=== PATIENT | female | born 1975 | race Caucasian/White ===

== ENCOUNTER 2023-02-28 09:58 | Emergency (ER) | payer BC, SELFPAY ==
[2023-02-28 10:00] VITALS: BP 134/65; PULSE 60; RESP 18; TEMP 36.9; O2SAT 100; BMI 19.6
[2023-02-28 10:08] VITALS: BP 134/65; O2SAT 97
--- NOTE | 2023-02-28 10:28 | ED.FEMALEGU ---
HPI - Female Genitourinary General Chief complaint: Urogenital-Female Stated complaint: vaginal discharge, fever, D/V/N Time Seen by Provider: 02/28/23 10:17 Source: patient Mode of arrival: Ambulatory History of Present Illness HPI Narrative: Patient 47-year-old healthy female who has history of hypothyroid presents today with foul smell vaginal discharge. She reports that she woke up this morning felt nauseous threw up and had couple episodes [place] diarrhea. [place] up on the [place] they checked her temperature and it was 103. She is afebrile here. She reports that she took out her menstrual cup this morning and had gross foul-smelling discharge. She reports that she is been using the cups for the last 10 years she is never had anything like this. Related Data Home Medications Medication Instructions Recorded Confirmed levothyroxine 112 mcg tablet 56 mcg PO DAILY 02/28/23 02/28/23 Previous Rx's Medication Instructions Recorded ondansetron 4 mg disintegrating 4 mg PO Q8H PRN nausea and 02/28/23 tablet vomiting #10 tabs Allergies Allergy/AdvReac Type Severity Reaction Status Date / Time cefazolin [From Ancef] Allergy Intermediate Hives Verified 02/28/23 10:12 ciprofloxacin [From Cipro] Allergy Intermediate Hives Verified 02/28/23 10:12 clarithromycin [From Biaxin] Allergy Intermediate Hives Verified 02/28/23 10:12 erythromycin base Allergy Intermediate Hives Verified 02/28/23 10:12 sertraline [From Zoloft] Allergy Intermediate Hives Verified 02/28/23 10:12 codeine AdvReac Intermediate ITCHING Verified 02/28/23 10:12 Review of Systems Review of Systems ROS Unobtainable: All systems reviewed & are unremarkable except as noted in HPI and below Patient History Medical History Hypothyroid alcohol intake frequency: 0-2 drinks per day Substance Use Type: does not use Exam Initial Vital Signs Initial Vital Signs: Vital Signs Temperature 98.5 F 02/28/23 10:00 Pulse Rate 60 02/28/23 10:00 Respiratory Rate 18 02/28/23 10:00 Blood Pressure 134/65 02/28/23 10:00 Pulse Oximetry 100 02/28/23 10:00 Oxygen Delivery Method Room Air 02/28/23 10:00 GENERAL: Alert pleasant thin 47-year-old female and in no acute distress. HEENT: Head atraumatic,EOMI, pupils reactive, face symmetric, moist mucous membranes CARDIOVASCULAR: Regular rate and rhythm without murmurs, rubs or gallops. RESPIRATORY: Breath sounds equal bilaterally, no wheezes rales or rhonchi. ABDOMEN: Soft, nontender. Normoactive bowel sounds all 4 quadrants. No guarding or rebound. PELVIC: External genitalia is normal, cervix mildly friable clear discharge there is some blood no foul smell or gross discharge : No CVA tenderness EXTREMITIES: Normal range of motion, no clubbing or edema. Neurovascularly intact NEUROLOGICAL: Alert and oriented x4. SKIN: Warm, dry, no laceration, no petechiae, no rashes or lesions. Course Orders Ordered: ED Orders 02/28/23 10:13 Complete Blood Count AUTO DIFF Stat Comprehensive Metabolic Panel Stat Lipase Stat 02/28/23 10:38 Genital Culture Stat Urine Microscopic Stat Wet Prep Tric BV [place] Stat 02/28/23 10:45 Chlamydia Gonorrhea PCR -URINE Stat Discontinued Medications Sodium Chloride (Normal Saline 0.9%) 1,000 mls @ 1,000 mls/hr IV BOLUS ONE Stop: 02/28/23 11:16 Last Infusion: 02/28/23 12:04 Dose: 0 mls/hr Documented By: Admin: 02/28/23 10:57 Dose: 1,000 mls/hr Documented By: NR Sodium Chloride (Normal Saline 0.9%) 1,000 mls @ 1,000 mls/hr IV BOLUS ONE Stop: 02/28/23 11:27 Last Admin: 02/28/23 10:38 Dose: Not Given Documented By: ZURI Ondansetron HCl (Ondansetron 4 Mg Odt) 4 mg PO NOW PRN PRN Reason: Nausea And Vomiting Ondansetron HCl (Ondansetron 4 Mg/2 Ml Inj) 4 mg IV NOW PRN PRN Reason: Nausea And Vomiting Last Admin: 02/28/23 11:01 Dose: 4 mg Documented By: NR Vital Signs Vital signs: Vital Signs - 8 hr 02/28/23 11:53 02/28/23 11:53 Pulse Rate 61 Respiratory Rate 14 Blood Pressure 100/59 L Pulse Oximetry 100 Oxygen Delivery Method Room Air MDM - Female Genitourinary Lab Data Lab results narrative: Wet Prep Tric [facility] [place] Final 02/28/23-1101 White blood cells Few WBCs Clue cells: None seen Yeast: None seen Trichomonas: None seen 02/28/23 10:13 02/28/23 10:13 Labs: Lab Results 02/28/23 02/28/23 02/28/23 Range/Units 10:13 10:13 10:38 WBC 6.7 (4.5-11.0) X10^3/uL RBC 4.33 (4.0-5.2) X10^6/uL Hgb 11.9 L (12.0-16.0) g/dL Hct 36.1 (36-46) % MCV 83.4 (80-100) fL MCH 27.5 (26-34) PG MCHC 32.9 (30-36) % RDW 14.6 (11.6-14.8) % Plt Count 254 (150-400) X10^3/uL Neut % (Auto) 83.0 H (50-75) % Lymph % (Auto) 11.5 L (25-40) % [place] % (Auto) 4.1 (3-14) % Eos % (Auto) 0.8 L (2-4) % Baso % (Auto) 0.6 (0-2) % Neut # (Auto) 5600 (2701-2679) /uL Lymph # (Auto) 800 L (0308-9976) /uL [place] # (Auto) 300 (0-900) /uL Eos # (Auto) 100 (0-450) /uL Baso # (Auto) 0 (0-100) /uL Sodium 137 (137-145) mmol/L Potassium 3.6 (3.4-5.1) mmol/L Chloride 107 (98-107) mmol/L Carbon Dioxide 21 L (22-32) mmol/L BUN 13 (7-17) mg/dL Creatinine 0.79 (0.52-1.04) mg/dL Estimated GFR > 60 (>60) mL/min BUN/Creatinine Ratio 16.5 (6-22) Glucose 97 (70-100) mg/dL Calcium 9.1 (8.4-10.2) mg/dL Total Bilirubin 0.5 (0.2-1.3) mg/dL AST 36 (14-36) IU/L ALT 43 H (<35) IU/L Alkaline Phosphatase 55 (38-126) U/L Total Protein 7.7 (6.3-8.2) g/dL Albumin 4.5 (3.5-5.0) g/dL Globulin 3.2 (1.7-4.1) g/dL Albumin/Globulin Ratio 1.4 (1.0-2.8) Lipase 175 (23-300) U/L Urine RBC 0-1/hpf (0-5/HPF) Urine WBC 0-1/hpf (0-5/HPF) Ur Squamous Epith Cells 0-1 /hpf (0-5/HPF) Urine Bacteria Occasional (0-1) (None) Ur Culture Indicated? Cult not indicated Ur Chlamydia DNA (PCR) N gonorrhoeae DNA (PCR) 02/28/23 Range/Units 10:45 WBC (4.5-11.0) X10^3/uL RBC (4.0-5.2) X10^6/uL Hgb (12.0-16.0) g/dL Hct (36-46) % MCV (80-100) fL MCH (26-34) PG MCHC (30-36) % RDW (11.6-14.8) % Plt Count (150-400) X10^3/uL Neut % (Auto) (50-75) % Lymph % (Auto) (25-40) % [place] % (Auto) (3-14) % Eos % (Auto) (2-4) % Baso % (Auto) (0-2) % Neut # (Auto) (7409-2810) /uL Lymph # (Auto) (9073-2417) /uL [place] # (Auto) (0-900) /uL Eos # (Auto) (0-450) /uL Baso # (Auto) (0-100) /uL Sodium (137-145) mmol/L Potassium (3.4-5.1) mmol/L Chloride (98-107) mmol/L Carbon Dioxide (22-32) mmol/L BUN (7-17) mg/dL Creatinine (0.52-1.04) mg/dL Estimated GFR (>60) mL/min BUN/Creatinine Ratio (6-22) Glucose (70-100) mg/dL Calcium (8.4-10.2) mg/dL Total Bilirubin (0.2-1.3) mg/dL AST (14-36) IU/L ALT (<35) IU/L Alkaline Phosphatase (38-126) U/L Total Protein (6.3-8.2) g/dL Albumin (3.5-5.0) g/dL Globulin (1.7-4.1) g/dL Albumin/Globulin Ratio (1.0-2.8) Lipase (23-300) U/L Urine RBC (0-5/HPF) Urine WBC (0-5/HPF) Ur Squamous Epith Cells (0-5/HPF) Urine Bacteria (None) Ur Culture Indicated? Ur Chlamydia DNA (PCR) Not detected N gonorrhoeae DNA (PCR) Not detected Point of Care Testing Test Results Negative Urine Dip Bedside Urine Glucose Negative Bedside Urine Bilirubin - Negative Bedside Urine Ketone - Negative Urine Specific [place] 1.010 Bedside Urine Occult Blood ++ Bedside Urine pH 8 Bedside Urine Protein - Negative Bedside Urine Urobilinogen - Negative Bedside Urine Nitrite - Negative Bedside Urine Leukocytes - Negative Esterase MDM Narrative Medical decision making narrative: Patient healthy 47-year-old female presents today with vaginal discharge. About exam is pretty unremarkable slightly friable cervix mild clear discharge without obvious smell. Wet mount is negative for clue cells unlikely to be bacterial vaginosis low suspicion for PID gonorrhea chlamydia. Blood work is overall reassuring. She woke up today with nausea vomiting diarrhea as well it may be coincidental. She returns back home tomorrow. Recommend outpatient follow-up. Discharge Plan Departure Patient Disposition: Home Clinical Impression: Gastroenteritis Instructions: DI for Viral Gastroenteritis -- Adult Activity Restrictions/Additional Instructions: *You have been diagnosed with gastroenteritis *What to do: At this time no evidence of infection. Increase fluid intake as tolerated. I do recommend if still having discharge and foul smell please follow-up with primary *Continue to take medications as directed Zofran 4 mg every 8 hours if needed for nausea or vomiting--> [facility] *Follow up with your primary care provider in 2-3 days or call [phone] *Return to ER if you should have fever pain vaginal bleeding [or] any new, worsening or concerning symptoms Prescriptions: New ondansetron 4 mg tablet,disintegrating 4 mg PO Q8H PRN (Reason: nausea and vomiting) Qty: 10 0RF No Action levothyroxine 112 mcg tablet 56 mcg PO DAILY Stand Alone Forms: Patient Portal/API
[2023-02-28 10:31] LABS: Add Manual Diff / Slide Review NO; Basophils Absolute Auto 0 /uL (0-100); Basophils Percent Auto 0.6 % (0-2); Eosinophils Absolute Auto 100 /uL (0-450); Eosinophils Percent Auto 0.8 % (2-4); Hematocrit 36.1 % (36-46); Hemoglobin 11.9 g/dL (12.0-16.0); Lymphocytes Absolute Auto 800 /uL (1100-4500); Lymphocytes Percent Auto 11.5 % (25-40); Mean Corpuscular HGB Conc 32.9 % (30-36); Mean Corpuscular Hemoglobin 27.5 PG (26-34); Mean Corpuscular Volume 83.4 fL (80-100); Monocytes Absolute Auto 300 /uL (0-900); Monocytes Percent Auto 4.1 % (3-14); Neutrophils Absolute Auto 5600 /uL (1500-7000); Platelet Count 254 X10^3/uL (150-400); Red Blood Cell Count 4.33 X10^6/uL (4.0-5.2); Red Cell Distribution Width 14.6 % (11.6-14.8); White Blood Cell Count 6.7 X10^3/uL (4.5-11.0)
[2023-02-28 10:48] LABS: Alanine Aminotransferase 43 IU/L (<35); Albumin 4.5 g/dL (3.5-5.0); Albumin Globulin Ratio 1.4 (1.0-2.8); Alkaline Phosphatase 55 U/L (38-126); Aspartate Aminotransferase 36 IU/L (14-36); BUN Creatinine Ratio 16.5 (6-22); Bilirubin Total 0.5 mg/dL (0.2-1.3); Blood Urea Nitrogen 13 mg/dL (7-17); Calcium 9.1 mg/dL (8.4-10.2); Carbon Dioxide 21 mmol/L (22-32); Chloride 107 mmol/L (98-107); Estimated Glomerular Filt Rate > 60 mL/min (>60); Globulin 3.2 g/dL (1.7-4.1); Glucose 97 mg/dL (70-100); HEMOLYSIS < 15 (0-50); Lipase 175 U/L (23-300); Potassium 3.6 mmol/L (3.4-5.1); Sodium 137 mmol/L (137-145); Total Protein 7.7 g/dL (6.3-8.2)
[2023-02-28] MEDS: SODIUM CHLORIDE 0.9% 1,000 ML 1000 ML IV (10:57)
[2023-02-28] MEDS: ONDANSETRON 4 MG/2 ML INJ IV (11:01)
[2023-02-28 11:15] LABS: Bacteria Urine Occasional (0-1); Culture Indicated Urine Cult Not Indicated; RBC Urine 0-1/HPF (0-5/HPF); Squamous Epithelial Cell Urine 0-1 /HPF (0-5/HPF); WBC Urine 0-1/HPF (0-5/HPF)
[2023-02-28 11:53] VITALS: BP 100/59; PULSE 61; RESP 14; O2SAT 100
[2023-02-28 12:29] LABS: Urine N gonorrhoeae NOT DETECTED
[2023-02-28 12:32] LABS: Urine Chlamydia NOT DETECTED
== END 2023-02-28 12:04 | disposition home or self-care (01) ==
PROVIDERS: Emergency Provider Emergency Medicine
DX: K52.9 Noninfective gastroenteritis and colitis, unspecified (principal); N89.8 Other specified noninflammatory disorders of vagina
CPT/HCPCS: 36415; 80053; 81003; 81015; 81025; 83690; 85025; 87070; 87205; 87210; 87491; 87591; 96361; 96374; 99284; J2405